=== PATIENT | female | born 2005 | race Hispanic/Latino ===

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

== ENCOUNTER → 2024-12-09 11:37 | Outpatient (CLI) | payer OTHER, SELFPAY | PROVIDERS: Family Provider Family Medicine; PCP Family Medicine; Visit Provider Family Medicine | DX: Z11.3 Encounter for screening for infections with a predominantly sexual mode of transmission (principal) | CPT/HCPCS: 87210; 87491; 87563; 87591 ==

== ENCOUNTER → 2025-02-17 15:48 | Outpatient (CLI) | payer OTHER, SELFPAY | PROVIDERS: Family Provider Family Medicine; PCP Family Medicine; Visit Provider Chiropractor | DX: J02.9 Acute pharyngitis, unspecified (principal) | CPT/HCPCS: 87070 ==

== ENCOUNTER → 2025-02-17 16:12 | Outpatient (CLI) | payer OTHER, SELFPAY ==
--- NOTE | 2025-02-17 16:16 | DI.RAD.S_ITS ---
PROCEDURE: XR CHEST 2V INDICATIONS: New onset shortness of breath TECHNIQUE: 2 views of the chest were acquired. COMPARISON: [facility], , CHEST 2 VIEW, 12/17/2010, 10:13. FINDINGS: Surgical changes and devices: None. Lungs and pleura: Prominence of bronchovascular markings. No consolidation. Mediastinum: Top-normal size of the heart. Mediastinal contours otherwise unremarkable. Bones and chest wall: No suspicious bony abnormalities. Soft tissues appear unremarkable. IMPRESSION: Borderline cardiomegaly with questionable mild pulmonary vascular congestion. No consolidation or pleural effusion seen. Dictated by: Lester Garcia M.D. on 02/17/2025 at 16:58 Approved by: Lester Garcia M.D. on 02/17/2025 at 16:59
== END ==
PROVIDERS: Family Provider Family Medicine; PCP Family Medicine; Referring Provider Chiropractor; Visit Provider Chiropractor
DX: R06.02 Shortness of breath (principal)
CPT/HCPCS: 71046

== ENCOUNTER 2025-02-17 17:55 | Emergency (ER) | payer OTHER, SELFPAY ==
[2025-02-17 18:07] VITALS: BP 146/78; PULSE 101; RESP 20; TEMP 37; O2SAT 100; BMI 37.0
--- NOTE | 2025-02-17 18:48 | EKG_ITS ---
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
[2025-02-17 18:53] LABS: Add Manual Diff / Slide Review NO; Hematocrit 38.4 % (36-46); Hemoglobin 12.9 g/dL (12.0-16.0); Lymphocytes Absolute Auto 3000 /uL (1100-4500); Mean Corpuscular HGB Conc 33.6 % (30-36); Mean Corpuscular Hemoglobin 29.5 PG (26-34); Mean Corpuscular Volume 87.8 fL (80-100); Platelet Count 356 X10^3/uL (150-400)
[2025-02-17 19:05] LABS: INR 0.9 (0.9-1.3); Prothrombin Time 10.7 SECONDS (9.4-12.5)
[2025-02-17 19:07] LABS: PTT Partial Thromboplastin Tim 32 SECONDS (25.1-36.5)
[2025-02-17 19:12] LABS: Alanine Aminotransferase 32 IU/L (<35); Albumin 4.3 g/dL (3.5-5.0); Albumin Globulin Ratio 1.3 (1.0-2.8); Alkaline Phosphatase 92 U/L (38-126); Blood Urea Nitrogen 21 mg/dL (7-17); Calcium 9.2 mg/dL (8.4-10.2); Carbon Dioxide 21 mmol/L (22-32); Chloride 105 mmol/L (98-107); Creatine Kinase 117 U/L (30-135); Estimated Glomerular Filt Rate > 60 mL/min (>60); Globulin 3.3 g/dL (1.7-4.1); Glucose 96 mg/dL (70-99); HEMOLYSIS < 15 (0-50); Lipase 110 U/L (23-300); Magnesium 1.9 mg/dL (1.6-2.3); Potassium 3.8 mmol/L (3.4-5.1); Sodium 137 mmol/L (137-145); Total Protein 7.6 g/dL (6.3-8.2)
[2025-02-17 19:21] LABS: NT-proBNP (BNP-Adult 18+) 40 pg/mL (<125)
[2025-02-17 19:24] LABS: Troponin I < 0.012 ng/mL (0.01-0.034)
[2025-02-17 21:55] VITALS: BP 133/75; PULSE 87; RESP 18; O2SAT 99
--- NOTE | 2025-02-18 06:47 | ED.SOB ---
HPI - SOB/Dyspnea General Chief Complaint: Shortness of Breath/Dyspnea Stated Complaint: sob-wheezing for one day Time Seen by Provider: 02/17/25 18:04 Source: patient Mode of arrival: Ambulatory Related Data Home Medications ?Medication ?Instructions ?Recorded ?Confirmed multivitamin PO 06/02/23 02/17/25 Previous Rx's ?Medication ?Instructions ?Recorded albuterol sulfate 90 mcg/actuation 2 puff inhalation Q6H PRN 02/17/25 aerosol inhaler shortness of breath or wheezing #8.5 grams Allergies Allergy/AdvReac Type Severity Reaction Status Date / Time cefprozil (CEFPROZIL) Allergy Severe RASH/HIVES Verified 02/17/25 18:08 Penicillins (PENICILLINS) AdvReac Mild Rash, Hives Verified 02/17/25 18:08 Patient History Medical History (Updated 02/17/25 @ 23:27 by Krys Melendrez RN) Esesr-Svoovnewry-Mgkjpu-Yany syndrome Uterine agenesis Solitary kidney Social History Smoking Status: Never smoker Smoking Status: Never smoker Exam Initial Vital Signs Initial Vital Signs: Vital Signs Temperature 98.6 F 02/17/25 18:07 Pulse Rate 101 H 02/17/25 18:07 Respiratory Rate 20 02/17/25 18:07 Blood Pressure 146/78 H 02/17/25 18:07 Pulse Oximetry 100 02/17/25 18:07 Oxygen Delivery Method Room Air 02/17/25 18:07 MDM - SOB/Dyspnea Lab Data 02/17/25 18:37 02/17/25 18:37 Labs: Lab Results 02/17/25 Range/Units 18:37 WBC 11.1 H (4.5-11.0) X10^3/uL RBC 4.37 (4.0-5.2) X10^6/uL Hgb 12.9 (12.0-16.0) g/dL Hct 38.4 (36-46) % MCV 87.8 (80-100) fL MCH 29.5 (26-34) PG MCHC 33.6 (30-36) % RDW 13.2 (11.6-14.8) % Plt Count 356 (150-400) X10^3/uL Neut % (Auto) 59.9 (50-75) % Lymph % (Auto) 27.1 (25-40) % [place] % (Auto) 9.2 (3-14) % Eos % (Auto) 2.6 (2-4) % Baso % (Auto) 1.2 (0-2) % Neut # (Auto) 6700 (4649-0890) /uL Lymph # (Auto) 3000 (0463-9470) /uL [place] # (Auto) 1000 H (0-900) /uL Eos # (Auto) 300 (0-450) /uL Baso # (Auto) 100 (0-100) /uL PT 10.7 (9.4-12.5) SECONDS INR 0.9 (0.9-1.3) APTT 32 (25.1-36.5) SECONDS D-Dimer < 215 (<500) ng/ml Sodium 137 (137-145) mmol/L Potassium 3.8 (3.4-5.1) mmol/L Chloride 105 (98-107) mmol/L Carbon Dioxide 21 L (22-32) mmol/L BUN 21 H (7-17) mg/dL Creatinine 1.15 H (0.52-1.04) mg/dL Estimated GFR > 60 (>60) mL/min BUN/Creatinine Ratio 18.3 (6-22) Glucose 96 (70-99) mg/dL Calcium 9.2 (8.4-10.2) mg/dL Magnesium 1.9 (1.6-2.3) mg/dL Total Bilirubin 0.2 (0.2-1.3) mg/dL AST 34 (14-36) IU/L ALT 32 (<35) IU/L Alkaline Phosphatase 92 (38-126) U/L Total Creatine Kinase 117 (30-135) U/L Troponin I < 0.012 (0.01-0.034) ng/mL NT-Pro-B Natriuret Pep 40 (<125) pg/mL Total Protein 7.6 (6.3-8.2) g/dL Albumin 4.3 (3.5-5.0) g/dL Globulin 3.3 (1.7-4.1) g/dL Albumin/Globulin Ratio 1.3 (1.0-2.8) Lipase 110 (23-300) U/L Urine Dip Bedside Urine Glucose Negative Bedside Urine Bilirubin - Negative Bedside Urine Ketone - Negative Urine Specific [place] 1.000 Bedside Urine Occult Blood - Negative Bedside Urine pH 6.0 Bedside Urine Protein - Negative Bedside Urine Urobilinogen - Negative Bedside Urine Nitrite - Negative Bedside Urine Leukocytes - Negative Esterase Discharge Plan Departure Patient Disposition: Left Without Being Seen Clinical Impression: Patient left without being seen Prescriptions: No Action multivitamin PO albuterol sulfate 90 mcg/actuation HFA aerosol inhaler 2 puff inhalation Q6H PRN (Reason: shortness of breath or wheezing) Qty: 8.5 0RF
== END 2025-02-17 23:27 | disposition left against medical advice (07) ==
PROVIDERS: Emergency Provider Family Medicine; Family Provider Family Medicine; PCP Family Medicine
DX: R06.02 Shortness of breath (principal); J02.9 Acute pharyngitis, unspecified
CPT/HCPCS: 71046; 80053; 81003; 82550; 83690; 83735; 83880; 84484; 85025; 85379; 85610; 85730; 87070; 87147; 93005; 99281

== ENCOUNTER → 2025-03-03 13:17 | Outpatient (CLI) | payer OTHER, SELFPAY ==
[2025-03-03 14:07] LABS: Influenza A - CEPHEID Flu A NEGATIVE (NEGATIVE); Influenza B - CEPHEID Flu B NEGATIVE (NEGATIVE)
[2025-03-03 14:14] LABS: COVID-19 CEPHEID 4-PLEX PCR POSITIVE (Negative)
== END ==
LOC: LAB 13:17
PROVIDERS: Family Provider Family Medicine; PCP Family Medicine; Visit Provider Chiropractor
DX: R05.1 Acute cough (principal)
CPT/HCPCS: 87637